=== PATIENT | male | born 1965 | race Caucasian/White ===

== ENCOUNTER 2017-03-02 16:10 | Emergency (ER) | payer SELFPAY ==
[2017-03-02] MEDS ORDERED: HYDROMORPHONE HCL 1 MG/ML SYRINGE IVP ONE ×3 (16:26→19:12)
[2017-03-02] MEDS ORDERED: ONDANSETRON HCL IV 4 MG/2 ML VIAL IVP ONE (16:26)
[2017-03-02] MEDS ORDERED: Diph,Pert(Acell),Tet Vac 0.5 ML SYR IM ONE (16:29)
[2017-03-02] MEDS ORDERED: CEFAZOLIN 1 Gram 1 GM/50 ML BAG IVPB ONE (18:47)
--- NOTE | 2017-03-02 19:05 | Emergency Department Record ---
History of Present Illness - General Chief complaint: Extremity Problem Stated complaint: WORK INJURY, HAND INJURED IN A PRESS Time Seen by Provider: 03/02/17 16:26 Source: Patient Mode of Arrival: Ambulatory Limitations: No limitations - History of Present Illness Initial comments: pt got hand caught in a press. he has numbness in 3 of the fingers and and lacs on 4 of them both palmar and dorsally. Complaint: Extremity pain Onset/Timin -: Minutes(s) Location: Right, Hand History of Same: No Radiation: Distal Severity scale (1-10): 9 Quality: Aching Consistency: Constant Improves with: Nothing Worsens with: Nothing Associated Symptoms: Denies other symptoms - Related Data Home Medications Medication Instructions Recorded Confirmed Last Taken No Home Med [NO HOME MEDS] 03/02/17 03/02/17 Unknown Allergies Allergy/AdvReac Type Severity Reaction Status Date / Time No Known Drug Allergies Allergy Verified 03/02/17 16:26 Travel Screening - Travel/Exposure Within Last 30 Days Have you traveled within the last 30 days?: No Review of Systems Reviewed: No additional complaints except as noted below Constitutional: Reports: As per HPI. Denies: Chills, Fever, Malaise, Night sweats, Weakness, Weight change Eyes: Reports: As per HPI. Denies: Eye discharge, Eye pain, Photophobia, Vision change ENT: Reports: As per HPI. Denies: Congestion, Dental pain, Ear pain, Epistaxis , Hearing loss, Throat pain Respiratory: Reports: As per HPI. Denies: Cough, Dyspnea, Hemoptysis, Stridor, Wheezes Cardiovascular: Reports: As per HPI. Denies: Arrhythmia, Chest pain, Dyspnea on exertion, Edema, Murmurs, Orthopnea, Palpitations, Paroxysmal nocturnal dyspnea, Rheumatic Fever, Syncope Endocrine: Reports: As per HPI. Denies: Fatigue, Heat or cold intolerance, Polydipsia, Polyuria Gastrointestinal: Reports: As per HPI. Denies: Abdominal pain, Constipation, Diarrhea, Hematemesis, Hematochezia, Melena, Nausea, Vomiting Genitourinary: Reports: As per HPI. Denies: Dysuria, Frequency, Hematuria, Incontinence, Retention, Testicular pain, Testicular mass, Urgency Musculoskeletal: Reports: As per HPI. Denies: Arthralgia, Back pain, Gout, Joint swelling, Myalgia, Neck pain Skin: Reports: As per HPI. Denies: Bruising, Change in color, Change in hair/ nails, Lesions, Pruritus, Rash Neurological: Reports: As per HPI. Denies: Abnormal gait, Confusion, Headache, Numbness, Paresthesias, Seizure, Tingling, Tremors, Vertigo, Weakness Psychiatric: Reports: As per HPI. Denies: Anxiety, Auditory hallucinations, Depression, Homicidal thoughts, Suicidal thoughts, Visual hallucinations Hematological/Lymphatic: Reports: As per HPI. Denies: Anemia, Blood Clots, Easy bleeding, Easy bruising, Swollen glands Past Medical History - SOCIAL HISTORY Smoking Status: Current every day smoker Alcohol Use: Occasional Drug Use: None - RESPIRATORY Hx Respiratory Disorders: No - CARDIOVASCULAR Hx Cardio Disorders: No - NEURO Hx Neuro Disorders: No - GI Hx GI Disorders: No - Hx Genitourinary Disorders: No - ENDOCRINE Hx Endocrine Disorders: No - MUSCULOSKELETAL Hx Musculoskeletal Disorders: No - PSYCH Hx Psych Problems: No - HEMATOLOGY/ONCOLOGY Hx Hematology/Oncology Disorders: No Family Medical History Any Significant Family History?: No Physical Exam - General General Appearance: Alert, Oriented x3, Cooperative, Moderate distress - Head Head exam: Normal inspection - Eye Eye exam: Normal appearance, PERRL, EOMI Pupils: Normal accommodation - ENT ENT exam: Normal exam, Mucous membranes moist, Normal external ear exam, Normal orophraynx Ear exam: Normal external inspection. negative: External canal tenderness Nasal Exam: Normal inspection. negative: Discharge, Sinus tenderness Mouth exam: Normal external inspection, Tongue normal Teeth exam: Normal inspection. negative: Dental caries Throat exam: Normal inspection. negative: Tonsillar erythema, Tonsillar exudate - Neck Neck exam: Normal inspection, Full ROM. negative: Tenderness - Respiratory Respiratory exam: Normal lung sounds bilaterally. negative: Respiratory distress - Cardiovascular Cardiovascular Exam: Normal rhythm, Normal heart sounds, Tachycardia - GI/Abdominal GI/Abdominal exam: Soft, Normal bowel sounds. negative: Tenderness - Rectal Rectal exam: Deferred - exam: Deferred - Extremities Extremities exam: Full ROM, Normal capillary refill, Tenderness Image of Hand: 1 - lacs across 2,3,4 phalanyx, decreased sensation of 2,3 phalynx, crush injury 2 - lacs on 2-5 phalynx - Back Back exam: Reports: Normal inspection, Full ROM. Denies: Muscle spasm, Rash noted, Tenderness - Neurological Neurological exam: Alert, CN II-XII intact, Normal gait, Oriented X3 - Psychiatric Psychiatric exam: Normal affect, Normal mood - Skin Skin exam: Dry, Intact, Normal color, Warm Course Vital Signs 03/02/17 03/02/17 16:17 16:58 Temperature 97.8 F Pulse Rate 102 H Pulse Rate [ 86 Pulse Ox Probe] Respiratory 22 20 Rate Blood Pressure 165/111 Blood Pressure 120/88 [Left Arm] Pulse Ox 96 97 Disposition Disposition: Transfer Clinical Impression: Crushing injury of right hand, initial encounter, Nerve damage Open fractures of multiple sites of phalanx of right hand Qualifiers: Encounter type: initial encounter Qualified Code(s): S62.609B - Fracture of unspecified phalanx of unspecified finger, initial encounter for open fracture Disposition: Acute Care Hospital Transfer Transfer To: [facility] Reason For Transfer: needs hand surgeon Accepting Physician: dr lehman Time Discussed w/Accepting Physician: 19:08 Quality - Quality Measures Quality Measures: N/A - Blood Pressure Screening Does Patient Have Any of the Following: No Blood Pressure Classification: Hypertensive Reading Systolic Measurement: 165 Diastolic Measurement: 111 Screening for High Blood Pressure: < First Hypertensive BP, F/U Documented > [ [id number]] First Hypertensive Follow-up Interventions: Follow-up with rescreen GT 1 day and LT 4 weeks.
--- NOTE | 2017-03-03 19:38 | RADIOLOGY REPORT ---
EXAM: HAND, RIGHT 3 VIEWS HISTORY: RIGHT HAND AND FINGERS GOT CAUGHT IN A PRESS. TECHNIQUE: Three-view right hand. COMPARISON: None. ENCOUNTER: Initial. FINDINGS: There appears to be an acute nondisplaced fracture at the base of the right second middle phalanx, which may be intraarticular in nature. No obvious additional fractures. Three punctate metallic foreign bodies are noted within the dorsal soft tissues near the right third proximal phalanx. Mild to moderate osteoarthritic change of the right first carpometacarpal joint as well as first MCP. Mild arthritic change of the DIP's. IMPRESSION: 1. ACUTE NONDISPLACED INTRAARTICULAR FRACTURE VOLAR BASE OF THE RIGHT SECOND MIDDLE PHALANX. 2. THREE METALLIC FOREIGN BODIES DORSAL SOFT TISSUES NEAR THE RIGHT THIRD PROXIMAL PHALANX. 3. MULTIFOCAL ARTHRITIC CHANGE. JOB NUMBER: [id number] MTD[facility]
--- NOTE | 2017-03-03 20:21 | CT SCAN REPORT ---
EXAM: CT SCAN UPPER EXTREMITY WO CONTRAST HISTORY: CAUGHT RIGHT HAND IN PRESS, HYPESTHESIA RIGHT HAND. AT LEAST ONE FRACTURE OF THE RIGHT HAND. COMPARISON: Right hand radiograph 03/02/17. ENCOUNTER: Initial. TECHNIQUE: Contiguous axial images from the distal radius and ulna to the distal phalanges of the right hand were obtained. Sagittal and coronal two- dimensional reformatted images were obtained for better anatomic delineation. 3D volume-rendered images were also obtained for better anatomic delineation. FINDINGS: Redemonstration of acute mildly displaced intraarticular fracture at the volar base of the right second proximal phalanx with up to 1 mm of distraction at the fracture site. There is an acute nondisplaced transverse fracture distal half of the right third proximal phalanx. Three punctate radiodense foreign bodies at the dorsal aspect of the right third proximal phalanx. No additional fractures. Soft tissue gas noted at the volar aspect of the second digit, volar and dorsal aspects of the third digit, fourth digit, and fifth digit. Mild to moderate osteoarthritic change of the right first carpometacarpal joint as well as MCP. Corticated ossicle at the volar aspect of the fourth PIP, likely degenerative in nature. IMPRESSION: 1. ACUTE NONDISPLACED INTRAARTICULAR FRACTURE AT THE VOLAR BASE OF THE RIGHT SECOND PROXIMAL PHALANX. 2. ACUTE NONDISPLACED TRANSVERSE FRACTURE DISTAL HALF RIGHT THIRD PROXIMAL PHALANX. 3. PUNCTATE RADIODENSE FOREIGN BODIES DORSAL ASPECT NEAR THE RIGHT THIRD PROXIMAL PHALANX. 4. SOFT TISSUE GAS THROUGHOUT THE PHALANGES OF THE RIGHT HAND CONSISTENT WITH PENETRATING INJURY. 5. MULTIFOCAL OSTEOARTHRITIC CHANGE ABOVE. JOB NUMBER: [id number] [facility]
== END 2017-03-02 19:28 | disposition short-term general hospital (02) ==
LOC: ER 16:10
DX: S62.652B Nondisplaced fracture of middle phalanx of right middle finger, initial encounter for open fracture (principal); S62.640B Nondisplaced fracture of proximal phalanx of right index finger, initial encounter for open fracture; S62.612B Displaced fracture of proximal phalanx of right middle finger, initial encounter for open fracture; S61.222A Laceration with foreign body of right middle finger without damage to nail, initial encounter; S64.490A Injury of digital nerve of right index finger, initial encounter; S61.220A Laceration with foreign body of right index finger without damage to nail, initial encounter; W31.1XXA Contact with metalworking machines, initial encounter; Y92.63 Factory as the place of occurrence of the external cause; Y99.0 Civilian activity done for income or pay
CPT/HCPCS: 99285 ×2; 96376; 96374; 96372; 96375; 73130; 73200; J2405; J0690; J1170; 90715